=== PATIENT | male | born 1980 | race African-American/Black ===

== ENCOUNTER 2021-03-26 21:30 | Inpatient (IN) ==
[2021-03-27] MEDS ORDERED: SODIUM CHLORIDE 0.9% 1,000 ML IV STA (01:03)
[2021-03-27] MEDS ORDERED: ONDANSETRON 4 MG/2 ML VIAL IV STA (01:03)
[2021-03-27 01:35] LABS: Basophils % 0.2 % (0.0-0.8); Eosinophils # 0.1 10*3/uL (0.0-0.87); Eosinophils % 0.9 % (0.00-10.9); Hematocrit 37.8 VOL% (42.0-52.0); Hemoglobin 12.5 GM/DL (14.0-18.0); Immature Granulocytes % 1.5 %; Immature Granulocytes Absolute 0.21 #; Lymphocytes % 14.3 % (21.2-54.2); Mean Corpuscular HGB Conc 33.1 GM/DL (32-36); Mean Corpuscular Volume 91.1 FL (87-102); Mean Platelet Volume 10.2 FL (9.6-12.0); Monocytes % 14.3 % (1.7-12.7); Neutrophils % 68.8 % (38.7-73.9); Platelet Count 434 T/CUMM (130-400); Red Blood Count 4.15 MC/CUMM (3.8-5.5); Red Cell Distribution Width 13.2 % (9.3-17.3); White Blood Count 13.8 T/CUMM (4-12)
[2021-03-27 01:50] LABS: Bilirubin,Total 0.4 MG/DL (0.20-1.00); Osmolality,Calculated 279.4 MOS/KG (273-304); Total Protein 8.2 G/DL (6.4-8.2)
[2021-03-27] MEDS ORDERED: KETOROLAC 30 MG/1 ML VIAL IV STA (02:04)
[2021-03-27 02:43] LABS: Bilirubin,Urine Negative (Negative); Blood, Urine Negative (Negative); Glucose,Urine (UA) Negative (Negative); Ketones,Urine Negative (Negative); Mucus,Urine Occasional /LPF (Occasional); Nitrite,Urine Negative (Negative); Protein,Urine Negative; RBC,Urine 1 /HPF (0-4); Urine Appearance CLOUDY (Clear); Urine Color Yellow (Yellow)
[2021-03-27 02:50] LABS: Barbiturates Screen,Urine Negative (Negative); Benzodiazepines Screen,Urine Negative (Negative); Cannabinoid Screen,Urine Positive (Negative); Opiate Screen,Urine Negative (Negative); Phencyclidine Screen,Urine Negative (Negative)
[2021-03-27] MEDS ORDERED: hydrALAZINE 20 MG/1 ML VIAL IV STA (03:10)
[2021-03-27] MEDS ORDERED: LEVOFLOXACIN INJ 500 MG/100 ML PREMIX IV ONE (05:01)
[2021-03-27] MEDS ORDERED: ENOXAPARIN 30 MG/0.3 ML SYRINGE SUBCUT STA (05:04)
[2021-03-27] MEDS ORDERED: ENOXAPARIN 80 MG/0.8 ML SYRINGE SUBCUT STA (05:06)
[2021-03-27] MEDS ORDERED: ONDANSETRON 4 MG/2 ML VIAL IV PRN ×2 (06:17→14:30)
[2021-03-27] MEDS ORDERED: hydrALAZINE 20 MG/1 ML VIAL IV PRN (06:17)
[2021-03-27] MEDS ORDERED: ZALEPLON 5 MG CAPSULE PO PRN (06:17)
[2021-03-27] MEDS: AMPICILLIN/SULBACTAM 3,000 MG in SODIUM CHLORIDE 0.9% 100 ML IV SCH ×3 (06:45→21:05)
[2021-03-27] MEDS: CHOLECALCIFEROL 1,000 UNIT TABLET PO SCH (13:10)
[2021-03-27] MEDS: PANTOPRAZOLE 40 MG TABLET PO SCH (13:10)
[2021-03-27] MEDS: DEXAMETHASONE 4 MG/1 ML VIAL IV SCH (13:10)
[2021-03-27] MEDS: FAMOTIDINE 20 MG TABLET PO SCH ×2 (13:10→21:05)
[2021-03-27] MEDS: ASCORBIC ACID 500 MG TABLET PO SCH ×2 (13:10→21:05)
[2021-03-27] MEDS: CETIRIZINE 10 MG TABLET PO SCH (13:11)
[2021-03-27] MEDS: ZINC GLUCONATE 50 MG TABLET PO SCH (13:11)
[2021-03-27] MEDS: ACETAMINOPHEN 325 MG TABLET PO PRN (13:22)
[2021-03-27] MEDS ORDERED: methylPREDNISolone SOD SUC 125 MG/2 ML VIAL IV PRN (14:30)
[2021-03-27] MEDS ORDERED: ACETAMINOPHEN 325 MG TABLET PO PRN (14:30)
[2021-03-27] MEDS ORDERED: MECLIZINE 25 MG TABLET PO PRN (14:30)
[2021-03-27] MEDS ORDERED: CASIRIVIMAB/IMDEVIMAB 1,200 MG in SODIUM CHLORIDE 0.9% 100 ML IV ONE (16:00)
[2021-03-27] MEDS ORDERED: diphenhydrAMINE 50 MG/1 ML VIAL IV PRN ×2 (16:00)
[2021-03-27] MEDS ORDERED: SODIUM CHLORIDE 0.9% 200 ML IV SCH (16:00)
[2021-03-27] MEDS ORDERED: SODIUM CHLORIDE 0.9% 1,000 ML IV SCH (16:00)
[2021-03-27] MEDS: RIVAROXABAN 15 MG TABLET PO SCH (18:00)
[2021-03-28] MEDS: ACETAMINOPHEN 325 MG TABLET PO PRN ×4 (02:05→20:40)
[2021-03-28] MEDS: AMPICILLIN/SULBACTAM 3,000 MG in SODIUM CHLORIDE 0.9% 100 ML IV SCH ×4 (02:06→20:41)
[2021-03-28 05:21] LABS: Basophils % 0.1 % (0.0-0.8); Eosinophils % 0.1 % (0.00-10.9); Hematocrit 34.3 VOL% (42.0-52.0); Hemoglobin 11.8 GM/DL (14.0-18.0); Immature Granulocytes % 1.7 %; Immature Granulocytes Absolute 0.32 #; Lymphocytes # 1.5 10*3/uL (1.4-4.0); Lymphocytes % 7.7 % (21.2-54.2); Mean Corpuscular HGB Conc 34.4 GM/DL (32-36); Mean Corpuscular Volume 90.3 FL (87-102); Neutrophils % 80.4 % (38.7-73.9); Platelet Count 544 T/CUMM (130-400); Red Cell Distribution Width 13.3 % (9.3-17.3); White Blood Count 19.2 T/CUMM (4-12)
[2021-03-28 05:55] LABS: Albumin 2.1 G/DL (3.4-5.0); Bilirubin,Total 0.8 MG/DL (0.20-1.00); Calcium 8.5 MG/DL (8.5-10.1); Osmolality,Calculated 280.4 MOS/KG (273-304); Total Protein 6.7 G/DL (6.4-8.2)
[2021-03-28 06:00] LABS: Ferritin 378.5 ng/ml (26-388)
[2021-03-28] MEDS: RIVAROXABAN 15 MG TABLET PO SCH ×2 (08:30→17:36)
[2021-03-28] MEDS: DEXAMETHASONE 4 MG/1 ML VIAL IV SCH (08:33)
[2021-03-28] MEDS: ZINC GLUCONATE 50 MG TABLET PO SCH (09:02)
[2021-03-28] MEDS: SERTRALINE 100 MG TABLET PO SCH (09:02)
[2021-03-28] MEDS: CHOLECALCIFEROL 1,000 UNIT TABLET PO SCH (09:02)
[2021-03-28] MEDS: ASCORBIC ACID 500 MG TABLET PO SCH ×2 (09:02→20:40)
[2021-03-28] MEDS: FAMOTIDINE 20 MG TABLET PO SCH ×2 (09:02→20:41)
[2021-03-28] MEDS: PANTOPRAZOLE 40 MG TABLET PO SCH (09:02)
[2021-03-28] MEDS: amLODIPine 10 MG TABLET PO SCH (09:02)
[2021-03-28] MEDS: CETIRIZINE 10 MG TABLET PO SCH (09:03)
[2021-03-28] MEDS: MELATONIN 3 MG TABLET PO PRN (20:40)
[2021-03-29] MEDS: AMPICILLIN/SULBACTAM 3,000 MG in SODIUM CHLORIDE 0.9% 100 ML IV SCH ×4 (03:25→20:34)
[2021-03-29] MEDS: ACETAMINOPHEN 325 MG TABLET PO PRN (06:51)
[2021-03-29] MEDS: CETIRIZINE 10 MG TABLET PO SCH (09:00)
[2021-03-29] MEDS: RIVAROXABAN 15 MG TABLET PO SCH ×2 (09:00→17:26)
[2021-03-29] MEDS: CHOLECALCIFEROL 1,000 UNIT TABLET PO SCH (09:00)
[2021-03-29] MEDS: SERTRALINE 100 MG TABLET PO SCH (09:00)
[2021-03-29] MEDS: ASCORBIC ACID 500 MG TABLET PO SCH ×2 (09:00→20:33)
[2021-03-29] MEDS: FAMOTIDINE 20 MG TABLET PO SCH ×2 (09:00→20:33)
[2021-03-29] MEDS: ZINC GLUCONATE 50 MG TABLET PO SCH (09:00)
[2021-03-29] MEDS: amLODIPine 10 MG TABLET PO SCH (09:00)
[2021-03-29] MEDS: PANTOPRAZOLE 40 MG TABLET PO SCH (09:00)
[2021-03-29] MEDS: DEXAMETHASONE 4 MG/1 ML VIAL IV SCH (09:00)
[2021-03-29 12:26] LABS: Basophils % 0.1 % (0.0-0.8); Eosinophils % 0.1 % (0.00-10.9); Hematocrit 32.4 VOL% (42.0-52.0); Hemoglobin 11.1 GM/DL (14.0-18.0); Immature Granulocytes % 1.4 %; Lymphocytes # 1.3 10*3/uL (1.4-4.0); Lymphocytes % 8.8 % (21.2-54.2); Mean Corpuscular HGB Conc 34.3 GM/DL (32-36); Mean Corpuscular Volume 88.5 FL (87-102); Mean Platelet Volume 9.6 FL (9.6-12.0); Monocytes % 6.9 % (1.7-12.7); Neutrophils % 82.7 % (38.7-73.9); Platelet Count 563 T/CUMM (130-400); Red Blood Count 3.66 MC/CUMM (3.8-5.5); Red Cell Distribution Width 13.1 % (9.3-17.3); White Blood Count 14.5 T/CUMM (4-12)
[2021-03-29 12:53] LABS: Calcium 8.2 MG/DL (8.5-10.1); Osmolality,Calculated 281.1 MOS/KG (273-304); Potassium 3.7 MMOL/L (3.5-5.1)
[2021-03-29] MEDS: MELATONIN 3 MG TABLET PO PRN (20:33)
[2021-03-30] MEDS: AMPICILLIN/SULBACTAM 3,000 MG in SODIUM CHLORIDE 0.9% 100 ML IV SCH ×3 (03:25→15:00)
[2021-03-30 05:23] LABS: Basophils % 0.3 % (0.0-0.8); Eosinophils # 0.1 10*3/uL (0.0-0.87); Eosinophils % 0.4 % (0.00-10.9); Hematocrit 31.3 VOL% (42.0-52.0); Hemoglobin 10.4 GM/DL (14.0-18.0); Immature Granulocytes % 1.4 %; Immature Granulocytes Absolute 0.19 #; Lymphocytes # 2.7 10*3/uL (1.4-4.0); Lymphocytes % 19.8 % (21.2-54.2); Mean Corpuscular HGB Conc 33.2 GM/DL (32-36); Mean Corpuscular Volume 90.5 FL (87-102); Mean Platelet Volume 9.8 FL (9.6-12.0); Monocytes % 13.1 % (1.7-12.7); Platelet Count 549 T/CUMM (130-400); Red Blood Count 3.46 MC/CUMM (3.8-5.5); Red Cell Distribution Width 13.2 % (9.3-17.3); White Blood Count 13.7 T/CUMM (4-12)
[2021-03-30 05:53] LABS: Calcium 8.2 MG/DL (8.5-10.1); Ferritin 269.3 ng/ml (26-388); Potassium 3.7 MMOL/L (3.5-5.1)
[2021-03-30] MEDS: SERTRALINE 100 MG TABLET PO SCH (08:42)
[2021-03-30] MEDS: ASCORBIC ACID 500 MG TABLET PO SCH (08:42)
[2021-03-30] MEDS: ZINC GLUCONATE 50 MG TABLET PO SCH (08:42)
[2021-03-30] MEDS: amLODIPine 10 MG TABLET PO SCH (08:42)
[2021-03-30] MEDS: CHOLECALCIFEROL 1,000 UNIT TABLET PO SCH (08:43)
[2021-03-30] MEDS: RIVAROXABAN 15 MG TABLET PO SCH ×2 (08:43→17:00)
[2021-03-30] MEDS: CETIRIZINE 10 MG TABLET PO SCH (08:43)
[2021-03-30] MEDS: PANTOPRAZOLE 40 MG TABLET PO SCH (08:43)
[2021-03-30] MEDS: DEXAMETHASONE 4 MG/1 ML VIAL IV SCH (08:50)
[2021-03-30] MEDS: FAMOTIDINE 20 MG TABLET PO SCH (08:55)
[2021-03-30 17:52] VITALS: BP 138/89
== END 2021-03-30 18:50 | disposition home or self-care (01) | DRG 177 ==
LOC: N.ED 21:30 → SUATTDRO 03-27 06:05 → N.EDINP 03-27 06:05 → N.TELES 03-27 07:38 → N.ICU 03-27 09:46
PROVIDERS: ADMIT Emergency Medicine; ATTEND Hospitalist